=== PATIENT | male | born 1990 | race Hispanic/Latino ===

== ENCOUNTER 2018-01-15 16:36 | Emergency (ER) | payer MEDICAID ==
[2018-01-15] MEDS ORDERED: IBUPROFEN 800 MG TAB ONE (17:01)
== END 2018-01-15 18:00 | disposition home or self-care (01) ==
LOC: EDH 16:36
DX: S20.211A Contusion of right front wall of thorax, initial encounter (principal); R55 Syncope and collapse; X58.XXXA Exposure to other specified factors, initial encounter; Y93.89 Activity, other specified; Y92.89 Other specified places as the place of occurrence of the external cause; Y99.8 Other external cause status
CPT/HCPCS: 71046; 93005